=== PATIENT | female | born 1970 | race Caucasian/White ===

== ENCOUNTER → 2018-01-29 | Outpatient (CLI) | payer BC ==
[~2018-01-29] MED LIST: AEC81 PO; ATOR10TA69 PO; CEFU500T67 PO; LISI-617 PO; METO-391 PO; ONDA8TAB8 PO
== END | disposition home or self-care (01) ==
LOC: SHCH 08:23
PROVIDERS: ATTEND Internal Medicine Cardiovascular Disease
DX: I47.2 Ventricular tachycardia (principal)
CPT/HCPCS: 93306

== ENCOUNTER → 2019-09-15 | Outpatient (CLI) | payer BC | END | disposition home or self-care (01) | LOC: SHCH 15:20 | PROVIDERS: ATTEND Internal Medicine Cardiovascular Disease | DX: I50.22 Chronic systolic (congestive) heart failure (principal) | CPT/HCPCS: 93306 ==

== ENCOUNTER 2021-08-20 16:44 | Emergency (ER) | payer BC, OTHER ==
[~2021-08-20] VITALS: Ht 165.1 cm; Wt 104.3 kg
[~2021-08-20 16:44] MED LIST changes: -LISI-617 PO; +LISI-809 PO
[2021-08-20 17:00] VITALS: BP 126/86
[2021-08-20] MEDS ORDERED: OCTYL 2-CYANOACRYLATE 1 EACH TP ONE (17:05)
[2021-08-20] MEDS ORDERED: TETANUS/DIPHTHERIA TOXOID [ADULT] 0.5 ML VIAL IM ONE (17:30)
== END 2021-08-20 17:41 | disposition home or self-care (01) ==
LOC: EDH 16:44
DX: S61.211A Laceration without foreign body of left index finger without damage to nail, initial encounter (principal); I10 Essential (primary) hypertension; E78.00 Pure hypercholesterolemia, unspecified; Z79.82 Long term (current) use of aspirin; Z79.899 Other long term (current) drug therapy; X58.XXXA Exposure to other specified factors, initial encounter; Y93.89 Activity, other specified; Y92.89 Other specified places as the place of occurrence of the external cause; Y99.8 Other external cause status
CPT/HCPCS: 12001; 90471; 90714

== ENCOUNTER → 2023-01-30 | Outpatient (CLI) | payer BC ==
[~2023-01-30] MED LIST changes: -LISI-809 PO; +LISI5TAB21 PO
== END | disposition home or self-care (01) ==
LOC: SHCH 13:14
PROVIDERS: ATTEND Internal Medicine Cardiovascular Disease
DX: I47.20 Ventricular tachycardia, unspecified (principal)
CPT/HCPCS: 93306